=== PATIENT | female | born 1950 | race Caucasian/White ===

== ENCOUNTER 2018-01-30 14:10 | Inpatient (IN) | payer OTHER ==
[~2018-01-30] VITALS: Ht 170.2 cm; Wt 82.9 kg
--- NOTE | ~2018-01-30 | EKG ---
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 : 1950 Requested By: Olvin Barker Order Number: [id number] MD: João Nielson Measurements Intervals [place] Rate: 52 P: 79 CO: 196 QRS: 71 QRSD: 97 T: 69 QT: 476 QTc: 443 Interpretive Statements Sinus bradycardia Probable anteroseptal infarct, old Compared to ECG 01/31/2018 06:56:43 No significant change was found Electronically Signed On 02-01-2018 8:52:15 CDT by João iNelson [email or web address] <ELECTRONICALLY SIGNED> By: João Nielson MD, [facility] 02/01/1852 8 8 João Nielson MD, [facility] /EPI
--- NOTE | ~2018-01-30 | EKG ---
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
--- NOTE | ~2018-01-30 | EKG ---
[address] [place] [address] ELECTROCARDIOGRAM REPORT Name: YAYAMARY Perez Room #: 212-[facility] IN .R.#: [id number] Admission: 01/30/18 Attend Phys: Justyn Sarabia MD Discharge: Date of : 54 Report #: [id number] THIS REPORT FOR: //name// [facility] Test Date: 2018-01-31 Test Time: 06:56:43 Pat Name: MARY JAVIER Department: Room: 212 Gender: F Utilities Operator: MANOJ : 1950 Requested By: Olvin Barker Order Number: [id number] MD: João Nielson Measurements Intervals [place] Rate: 45 P: 74 [place]: 203 QRS: 67 QRSD: 97 T: 71 QT: 536 QTc: 464 Interpretive Statements Sinus bradycardia Anteroseptal infarct, age indeterminate Compared to ECG 01/30/2018 14:13:26 Heart rate has slowed Electronically Signed On 01-31-2018 8:00:37 CDT by João Nielson [email or web address] <ELECTRONICALLY SIGNED> By: João Nielson MD, [facility] 01/31/18 0800 5 5 João Nielson MD, [facility] /EPI
--- NOTE | ~2018-01-30 | HC ---
[facility] [place] [address] CONSULTATION Name: JAVIERMARY Chris Room #: 212-P ADM IN ..#: [id number] Admission: 01/30/18 Attend Phys: Justyn Sarabia MD Discharge: Date of : 54 Report #: [id number] THIS REPORT FOR: //name// CC: Olvin Sarabia DATE OF SERVICE: 01/30/2018 HISTORY OF PRESENT ILLNESS: The patient is a 67-year-old single white female who I was asked to in the hospital after she had an episode of atrial fibrillation. The patient presented years ago with atrial fibrillation. She apparently was cardioverted at [facility]. She was placed on warfarin, but developed hematuria and had to be discontinued. She was actually found to be hyperthyroid at that time and required radiation therapy to her thyroid gland. She has done well since that time. Recently, she had 2 spells where she felt lightheaded and fell to the ground. She struck her chin on one occasion. She saw her primary care and underwent an extensive evaluation including a carotid Doppler study that showed moderate bilateral stenosis. She underwent an echocardiogram, had an ejection fraction of 65%. She wore a 24-hour Holter monitor that showed PACs and PVCs. She had a brief episode of a-fib. An MRI showed evidence of previous stroke. I actually just saw her in the clinic 2 weeks ago. I recommended a 30-day monitor. Over the last several days, the patient has had intermittent episodes of her heart beating fast and irregular consistent with a-fib. My office contacted her and she was started on Eliquis. Today, the patient went back in a-fib on the monitor and she was told to come to the hospital for further evaluation and treatment. By the time she arrived in the hospital; however, she was in sinus rhythm. She noted occasional pounding in her chest, but has no lightheadedness. She has had no increased shortness of breath or chest pain. PAST MEDICAL HISTORY: Significant for previous tonsillectomy, tubal ligation, hip surgery, hypertension, hyperlipidemia. MEDICATIONS: Consist of Xanax, aspirin, Synthroid, Naprosyn, ranitidine, sertraline, tramadol, clonidine. ALLERGIES: She has previous intolerance to CODEINE. FAMILY HISTORY: No history of heart disease. SOCIAL HISTORY: She is single, lives in [place], [place], not working at this time. She does smoke half pack of cigarettes a day[place] [address] CONSULTATION Name: MARY JAVIER Room #: 212-P [facility] IN ..#: [id number] Admission: 01/30/18 Attend Phys: Justyn Sarabia MD Discharge: Date of : 54 Report #: [id number] REVIEW OF SYSTEMS: She has had previous stroke by MRI. She has had bilateral carotid disease by Doppler study. She actually saw vascular surgeon recently in who felt this stenosis is not severe enough to recommend carotid endarterectomy at this time. She uses inhaler occasionally. No history of peptic ulcer disease, liver disease, kidney disease, cancer, psychiatric illness or skin problems. PHYSICAL EXAMINATION: GENERAL: Revealed an elderly female, appeared in no distress. VITAL SIGNS: She had a blood pressure of 140/80, pulse 70. She is afebrile. HEENT: She was anicteric, conjunctiva pink. Mucous members moist. NECK: Veins nondistended. Bilateral carotid bruits were heard. Neck was supple. CHEST: Clear to auscultation. CARDIAC: Regular rate and rhythm. ABDOMEN: Soft. EXTREMITIES: Had no edema. No dorsalis pedis pulse. SKIN: Warm and dry. NEUROLOGIC: Nonfocal. DIAGNOSTIC DATA: ECG today on admission to the ER showed a sinus rhythm with poor R-wave progression. LABORATORY DATA: Sodium 138, BUN 37, creatinine is 1.7. Troponin 0.38. White blood cell count 6.8, hemoglobin 13. Urinalysis negative for blood. IMPRESSION AND RECOMMENDATIONS: 1. Paroxysmal atrial fibrillation. I would recommend starting sotalol. I would agree with anticoagulation with Eliquis, decrease the dose to 2.5 every 12 hours because of chronic kidney disease. 2. History of syncope. Reason unclear. The patient has a monitor in place. 3. Bilateral carotid stenoses. The patient followed by vascular surgeon. 4. Hypertension. The patient has been on clonidine. 5. Hyperlipidemia. The patient has been on a statin drug in the past. 6. Tobacco abuse. The patient cannot tolerate Chantix. 7. Previous radiation therapy to thyroid gland. <ELECTRONICALLY SIGNED> By: Olvin Barker MD, [facility] 02/01/18 1000 1837 0636 Olvin Barker MD, FAC /nt
[2018-01-30 14:11] VITALS: BP 155/76
[2018-01-30] MEDS ORDERED: NAPROSYN500 MG PO (14:15)
[2018-01-30] MEDS ORDERED: SYNTHROID100 MC1 PO (14:15)
[2018-01-30] MEDS ORDERED: XANAX 0.5 MG0.5 MG PO (14:18)
[2018-01-30 14:44] LABS: HEMATOCRIT 39.2 % (37.0-47.0); MCH 33.2 pg (26.0-34.0); MCHC 33.2 g/dL (28.0-37.0); MCV 100.1 fL (80.0-100.0); RBC 3.92 mil/uL (4.20-5.00); WBC 6.8 thou/uL (4.0-11.0)
[2018-01-30 14:45] LABS: CALCIUM 9.1 mg/dL (8.5-10.1); CREATININE 1.7 mg/dL (0.6-1.0); POTASSIUM 3.9 mmol/L (3.5-5.1)
[2018-01-30 14:46] LABS: ABSOLUTE NEUTROPHILS 4.4 thou/uL (1.4-8.2); BASOPHILS 0.5 % (0.0-2.0); LYMPHOCYTES 20.9 % (24.0-44.0); PLATELET COUNT 179 thou/uL (150-400); POLYS 64.6 % (36.0-66.0); RDW 14.5 % (10.5-14.5)
[2018-01-30 14:53] LABS: TROPONIN-I 0.38 ng/mL (<0.06)
[2018-01-30 15:18] VITALS: BP 155/76
[2018-01-30 15:38] VITALS: BP 123/68
[2018-01-30 17:24] LABS: URINE BILIRUBIN NEGATIVE (Negative); URINE BLOOD NEGATIVE (Negative); URINE CLARITY CLEAR; URINE COLOR YELLOW; URINE GLUCOSE-RANDOM* NEGATIVE (Negative); URINE KETONES NEGATIVE (Negative); URINE LEUKOCYTES-REFLEX TRACE (Negative); URINE NITRITE-REFLEX POSITIVE (Negative); URINE PROTEIN (DIPSTICK) NEGATIVE (Negative); URINE UROBILINOGEN 0.2 E.U./dl (0.2-1.0)
[2018-01-30 17:35] LABS: BACTERIA-REFLEX >30 Many /HPF (None Seen)
[2018-01-30 17:36] LABS: CASTS None Seen /LPF (None Seen); CRYSTALS None Seen /LPF (None Seen); SQUAMOUS 0-3 Few /LPF (0-3); URINE RBC None Seen /HPF (0-2); URINE WBC-REFLEX 6-15 Few /HPF (0-5)
[2018-01-30 17:54] VITALS: BP 151/79
[2018-01-30 19:42] VITALS: BP 101/65
[2018-01-31] VITALS (7 sets, daily range): BP systolic 94–885; BP diastolic 53–71
[2018-01-31 02:37] LABS: HEMATOCRIT 36.2 % (37.0-47.0); MCH 33.1 pg (26.0-34.0); MCHC 33.2 g/dL (28.0-37.0); MCV 99.6 fL (80.0-100.0); RBC 3.63 mil/uL (4.20-5.00); RDW 13.9 % (10.5-14.5); WBC 6.5 thou/uL (4.0-11.0)
[2018-01-31 03:30] LABS: ANION GAP 9 mmol/L (7-16); BUN 35 mg/dL (7-18); CALCIUM 8.3 mg/dL (8.5-10.1); CHLORIDE 106 mmol/L (98-107); CHOLESTEROL 257 mg/dL (<200); CO2 28 mmol/L (21-32); CREATININE 1.4 mg/dL (0.6-1.0); GLUCOSE 98 mg/dL (74-106); HDL CHOLESTEROL 44 mg/dL (>40); LDL CHOLESTEROL 181 mg/dL (<100); POTASSIUM 4.2 mmol/L (3.5-5.1); SGOT 23 U/L (15-37); SGPT 19 U/L (30-65); SODIUM 143 mmol/L (136-145); TC:HDL 5.8 Ratio (Not establshd); TOTAL BILIRUBIN 0.3 mg/dL (<0.1-1.0); TOTAL PROTEIN 6.3 g/dL (6.4-8.2); TRIGLYCERIDE 163 mg/dL (<150); VLDL 33 mg/dL (<40)
[2018-01-31 03:31] LABS: SERUM ASSESSMENT Clear
[2018-02-01 03:45] LABS: CALCIUM 8.9 mg/dL (8.5-10.1); CREATININE 1.4 mg/dL (0.6-1.0); POTASSIUM 5.2 mmol/L (3.5-5.1)
[2018-02-01 04:47] LABS: HEMATOCRIT 35.8 % (37.0-47.0); HEMOGLOBIN 12.2 gm/dL (12.0-15.0); MCH 34.1 pg (26.0-34.0); MCHC 34.2 g/dL (28.0-37.0); MCV 99.8 fL (80.0-100.0); RBC 3.59 mil/uL (4.20-5.00); RDW 14.5 % (10.5-14.5); WBC 6.2 thou/uL (4.0-11.0)
[2018-02-01 05:50] VITALS: BP 121/83
[2018-02-01 08:00] VITALS: BP 114/60
[2018-02-01 12:05] VITALS: BP 110/84
[2018-02-01] MEDS ORDERED: NICOTINE TRANSD14 M1 TRANSDERM (12:59)
[2018-02-01] MEDS ORDERED: ELIQUIS5 MG PO (13:00)
[2018-02-01] MEDS ORDERED: ATORVASTATIN CA10 MG PO (13:01)
[2018-02-01] MEDS ORDERED: SORINE 80 MG TA80 M1 PO (13:01)
[2018-02-01 13:34] VITALS: BP 110/84
== END 2018-02-01 15:03 | disposition home or self-care (01) | DRG 682 ==
LOC: ER 14:10 → 2N 15:19 → EROBS 15:19 → 2N 15:40
PROVIDERS: Emergency Medicine; Hospitalist; Internal Medicine Cardiovascular Disease
DX: N17.9 Acute kidney failure, unspecified (principal); E43 Unspecified severe protein-calorie malnutrition; N39.0 Urinary tract infection, site not specified; I48.0 Paroxysmal atrial fibrillation; E78.5 Hyperlipidemia, unspecified; E89.0 Postprocedural hypothyroidism; F41.9 Anxiety disorder, unspecified; I25.9 Chronic ischemic heart disease, unspecified; I12.9 Hypertensive chronic kidney disease with stage 1 through stage 4 chronic kidney disease, or unspecified chronic kidney disease; N18.9 Chronic kidney disease, unspecified; I65.23 Occlusion and stenosis of bilateral carotid arteries; F17.210 Nicotine dependence, cigarettes, uncomplicated; Z92.3 Personal history of irradiation; Z79.899 Other long term (current) drug therapy; Z79.82 Long term (current) use of aspirin; Z88.5 Allergy status to narcotic agent; Z91.040 Latex allergy status
CPT/HCPCS: 10081